=== PATIENT | male | born 1975 | race Caucasian/White ===

== ENCOUNTER 2017-10-30 08:00 | Emergency (ER) | payer OTHER ==
[~2017-10-30] VITALS: Ht 170.2 cm; Wt 126.6 kg
[~2017-10-30 08:00] MED LIST: CYCLOBENZAPRINE10 MG PO; ENBREL50 MG/1 M1 INJ; MELOXICAM7.5 MG PO; MULTI-VITAMIN1 EACH PO; NORCO 10-325 T1 EACH PO
[2017-10-30] MEDS ORDERED: LIDOCAINE HCL 1% LOCAL INJ 20 ML VIAL INJ STA (08:29)
[2017-10-30 10:04] VITALS: BP 135/91
== END 2017-10-30 10:10 | disposition home or self-care (01) ==
LOC: ER 08:00
DX: L05.01 Pilonidal cyst with abscess (principal); L03.317 Cellulitis of buttock; E66.9 Obesity, unspecified
CPT/HCPCS: 10081; 87071; 87205; 99283; J2001